=== PATIENT | male | born 1960 | race Caucasian/White ===

== ENCOUNTER 2018-11-01 23:45 | Emergency (ER) | payer OTHER ==
[2018-11-02] MEDS: KETOROLAC 60 MG INJ IM (01:16)
[2018-11-02] MEDS: morphine LIQ (10 MG/5 ML) CUP PO (01:16)
[2018-11-02] MEDS ORDERED: HYDROmorphONE 2 MG/ML SYG IM (01:32)
[2018-11-02] MEDS: HYDROmorphONE 2 MG/ML SYG IM (01:42)
== END 2018-11-02 03:04 | disposition home or self-care (01) ==
LOC: FTE 11-02 03:04
DX: S43.101A Unspecified dislocation of right acromioclavicular joint, initial encounter (principal); W18.39XA Other fall on same level, initial encounter; Y92.009 Unspecified place in unspecified non-institutional (private) residence as the place of occurrence of the external cause
CPT/HCPCS: 23650; 73030-RT; 96372; 99284-25

== ENCOUNTER 2018-11-09 18:30 | Emergency (ER) | payer OTHER | END 2018-11-09 19:26 | disposition home or self-care (01) | LOC: FTE 19:26 | DX: S49.91XD Unspecified injury of right shoulder and upper arm, subsequent encounter (principal); X58.XXXD Exposure to other specified factors, subsequent encounter | CPT/HCPCS: 99282; Z7502 ==